=== PATIENT | female | born 1995 | race African-American/Black ===

== ENCOUNTER 2017-05-11 07:48 | Emergency (ER) | payer BC ==
--- NOTE | 2017-05-11 08:11 | PDOC ---
History of Present Illness - General Chief Complaint: Injury Stated Complaint: FALL Time Seen by Provider: 05/11/17 08:02 History Source: Patient - History of Present Illness Initial Comments: 05/11/17 08:08 22 y.o. female with no reported PMH presents to our ED today following a mechanical fall down 16 stairs. Patient states she was at the top of the stairs carrying two heavy bag when put the bags down to rearrange items in one of the bags when she tripped over one of the bags and rolled forward down the stairs hitting the R side of her head against a door frame. Patient denies any LOC and was ambulatory after the fall without any nausea/vomiting, mental status or visual changes. Patient further denies any pre-fall shortness of breath, lightheadedness, chest pain or visual changes. Patient states she has not experienced previous similar falls. Patient's LMP was 05/02 and she denies any possibility of . NKDA Surgical: denies Social: denies nicotine, denies alcohol, denies recreational drugs FH: denies any cardiac history PMD: Dr. Leavitt Past History - Past Medical History Allergies/Adverse Reactions: Allergies Allergy/AdvReac Type Severity Reaction Status Date / Time No Known Allergies Allergy Verified 05/11/17 08:00 Home Medications: Ambulatory Orders NK [No Known Home Medication] 05/11/17 COPD: No - Suicide/Smoking/Psychosocial Hx Smoking History: Never smoked Have you smoked in the past 12 months: No Information on smoking cessation initiated: No Hx Alcohol Use: No Drug/Substance Use Hx: No Substance Use Type: None *Physical Exam - Vital Signs Last Vital Signs Temp Pulse Resp BP Pulse Ox 98.2 F 72 18 136/87 97 05/11/17 08:01 05/11/17 08:01 05/11/17 08:01 05/11/17 08:01 05/11/17 08:01 - Physical Exam Comments: 05/11/17 08:22 GENERAL: The patient is awake, alert, and fully oriented, moving all 4 extremities, no C-spine/vertebral tenderness, pelvis stable HEAD: R supraorbital hematoma, R lateral facial abrasion, (-) cranial/facial/ oral lacerations, (-) Vang sign EYES: extraocular movements intact, sclera anicteric, conjunctiva clear ENT: Normal voice, Moist mucous membranes. LUNGS: Breath sounds equal, clear to auscultation bilaterally, No wheezes, no rhonchi, no rales. HEART: Regular rate and rhythm, normal S1 and S2 without murmur, rub or gallop. ABDOMEN: Soft, nontender, normoactive bowel sounds.~ No guarding, no rebound.~ . No CVA tenderness EXTREMITIES: Normal range of motion, no edema.~ No clubbing or cyanosis. No cords, erythema, or tenderness. NEUROLOGICAL: No facial assymetry, Normal speech PSYCH: Normal mood, normal affect. SKIN: Warm, Dry, normal turgor Medical Decision Making - Medical Decision Making 05/11/17 08:25 22 y.o. female presents following a likely mechanical fall down a staircase. On PE patient is alert, neurologically intact and displays normal gait, R sided hematoma with EOMI, PEERLA, (-) hemotympanum, (-) Vang sign however given nature of fall with repeated head trauma will CT head. 05/11/17 10:[address] negative for acute bleed. Patient resting comfortably, pain well controlled with Tylenol. Will discharge home with return precautions and concussion precautions. *DC/Admit/Observation/Transfer Diagnosis at time of Disposition: Fall - Discharge Dispostion Disposition: HOME Condition at time of disposition: Good Admit: No - Referrals - Patient Instructions Printed Discharge Instructions: DI for Concussion Additional Instructions: You were evaluated today following a fall. A cat scan of your head showed no acute bleed. You can continue to use Tylenol or Motrin for your pain. Please limit eye strain (limited exposure to computer and television screens, limited reading) and take precautions to avoid repeat head trauma. Return to the Emergency Department for any new/worsening/concerning symptoms. - Post Discharge Activity Forms/Work/School Notes: Back to Work
[2017-05-11 08:13] VITALS: BP 136/87; PULSE 72; TEMP 98.2; BMI 32.4
[2017-05-11] MEDS ORDERED: ACETAMINOPHEN 500 MG TABLET (FP) PO ONE (08:19)
[2017-05-11] MEDS ORDERED: ACETAMINOPHEN 325 MG TABLET (FP) ONE (08:28)
--- NOTE | 2017-05-11 09:06 | PDOC ---
Attending Attestation - Resident Resident Name: Ana Almanza - ED Attending Attestation I have performed the following: I have examined & evaluated the patient, The case was reviewed & discussed with the resident, I agree w/resident's findings & plan, Exceptions are as noted - HPI HPI: 05/11/17 09:02 Healthy 22-year-old female with no significant past medical history presents with right forehead and right body pain after mechanical trip and fall down about 16 stents. Patient was holding to heavy bags of clothes, tripped and rolled down one flight of steps, striking her head on the steps and again on the doorframe at the bottom. There was no loss of consciousness, the patient has been ambulatory since the fall about 1 hour ago without any focal musculoskeletal complaints, reports only some slight right shoulder/arm discomfort with range of motion, and some pain around her right for head whether swelling. No generalized headache, no nausea or vision changes or photophobia, no vomiting or focal weakness or speech change. - Physicial Exam PE: 05/11/17 09:03 Vital signs normal Well-appearing, seated in stretcher smiling Trauma exam is nonfocal except for 4 cm right forehead/lateral eyebrow subcutaneous hematoma without underlying bony defect, there is a small 1 cm very superficial abrasion. Instructed movements are intact Some discomfort with active range of motion of the right shoulder, no focal bony tenderness and no pain with passive range of motion. HEENT: Pupils are equal round and reactive to light, extraocular movements are intact. The oropharynx is clear. Neck: The trachea is midline, there is no stridor. There is no midline cervical spine tenderness, full range of motion of neck. Chest: Nontender, no ecchymosis or abrasions. Heart: S1-S2, regular rate and rhythm. No murmurs. Lungs: Clear to auscultation bilaterally. Symmetric chest rise. Abdomen: Soft/nontender/nondistended. Bowel sounds are normal. There is no abdominal or flank ecchymosis. Back/Pelvis: There is no midline spine tenderness or step-off. Pelvis is stable and nontender. Extremities: See above, otherwise there is no extremity deformity or joint swelling. No focal bony tenderness throughout. 2+ distal pulses throughout. Neuro: Alert and oriented x3. Cranial nerves II through XII are intact. 5 out of 5 motor strength x4 extremities. [id number] is intact. No pronator drift. Gait is stable. Skin: See above, No lacerations. Psych: Affect is appropriate. - Medical Decision Making 05/11/17 09:05 Patient seen and evaluated with the resident. I agree with the overall evaluation, assessment, and management with the following summary of visit: 22-year-old female with mechanical trip and fall down steps, positive head injury. Neurologically intact, but mechanism is moderate. No other muscular skeletal findings. Check urine CT head No indication for other emergent imaging. Pain control. Concussion precautions discussed.
== END 2017-05-11 11:02 | disposition home or self-care (01) ==
LOC: JER 07:48
DX: S09.8XXA Other specified injuries of head, initial encounter (principal); W10.8XXA Fall (on) (from) other stairs and steps, initial encounter; Y93.89 Activity, other specified; Y92.038 Other place in apartment as the place of occurrence of the external cause; Y99.9 Unspecified external cause status
CPT/HCPCS: 70450-TC; 84703; 99282-25